=== PATIENT | female | born 1995 | race Caucasian/White ===

== ENCOUNTER 2019-02-15 14:03 | Emergency (ER) | payer MEDICAID ==
[2019-02-15] MEDS: ACETAMINOPHEN 500 MG TAB PO (17:54)
[2019-02-15] MEDS: IBUPROFEN 600 MG TAB PO (17:54)
== END 2019-02-15 19:00 | disposition home or self-care (01) ==
LOC: FTE 14:03
DX: J11.1 Influenza due to unidentified influenza virus with other respiratory manifestations (principal)
CPT/HCPCS: 99283; Z7502

== ENCOUNTER 2019-07-13 18:23 | Emergency (ER) | payer SELFPAY, MEDICAID ==
[2019-07-13 21:07] LABS: URINE BLOOD (Dip) POC 3+ (NEGATIVE); URINE GLUCOSE (Dip) POC Negative (NEGATIVE); URINE KETONES (Dip) POC 2+ (NEGATIVE); URINE LEUKOCYTE EST (Dip) POC 1+ (NEGATIVE); URINE NITRITE (Dip) POC Negative (NEGATIVE); URINE TOTAL PROTEIN POC 3+ (NEGATIVE)
[2019-07-13 21:17] LABS: URINE BLOOD (Dip) POC 3+ (NEGATIVE); URINE GLUCOSE (Dip) POC Negative (NEGATIVE); URINE KETONES (Dip) POC 2+ (NEGATIVE); URINE LEUKOCYTE EST (Dip) POC 2+ (NEGATIVE); URINE NITRITE (Dip) POC Negative (NEGATIVE); URINE TOTAL PROTEIN POC 2+ (NEGATIVE)
[2019-07-13] MEDS: KETOROLAC 15 MG INJ IM (21:17)
[2019-07-21 18:56] LABS: URINE BLOOD (Dip) POC 3+ (NEGATIVE); URINE GLUCOSE (Dip) POC Negative (NEGATIVE); URINE KETONES (Dip) POC 2+ (NEGATIVE); URINE LEUKOCYTE EST (Dip) POC 1+ (NEGATIVE); URINE LEUKOCYTE EST (Dip) POC 2+ (NEGATIVE); URINE NITRITE (Dip) POC Negative (NEGATIVE); URINE TOTAL PROTEIN POC 2+ (NEGATIVE); URINE TOTAL PROTEIN POC 3+ (NEGATIVE)
== END 2019-07-13 21:50 | disposition home or self-care (01) ==
LOC: FTE 18:23
DX: N30.00 Acute cystitis without hematuria (principal)
CPT/HCPCS: 81003; 81025; 96372; 99284-25